=== PATIENT | female | born 1985 | race Caucasian/White ===

== ENCOUNTER 2016-10-06 22:54 | Emergency (ER) | payer OTHER ==
[~2016-10-06] VITALS: Ht 175.3 cm; Wt 70.0 kg
[~2016-10-06 22:54] MED LIST: LORTA5 PO; TIZA4 PO
[2016-10-06] MEDS ORDERED: CYMB30CA PO (23:01)
[2016-10-06 23:02] VITALS: BP 135/92; PULSE 104; RESP 19; TEMP 98.6; O2SAT 98
--- NOTE | 2016-10-07 00:45 | PD ---
HPI Chief Complaint: Alcohol/Drug Intoxication Time Seen by Provider: 00:41 Travel History International Travel<30 days: No Contact w/Intl Traveler<30days: No Traveled to known affect area: No History of Present Illness HPI Patient comes in under [place] act by police found to be altered secondary to drug use. Patient denies any medical complaints or concerns. Denies any pain anywhere. Denies chest pain, shortness of breath, abdominal pain, fevers, or headache. Patient states she just having weird dreams after injecting meth and taking 3 Xanax. PFSH Past Medical History Cardiovascular Problems: Yes (HX ENDOCARDITIS) Diabetes: No Diminished Hearing: No Genitourinary: No Musculoskeletal: No Neurologic: No Respiratory: No Immunizations Current: Yes ?: Unknown LMP: 1 MONTH AGO : 0 Past Surgical History Abdominal Surgery: Yes (APENDECTOMY) Appendectomy: Yes Valve Replacement: No Social History Alcohol Use: No Tobacco Use: Yes (1 PPD) Substance Use: Yes (PT STATES SHE "SHOOTS PILLS") Allergies-Medications (Allergen,Severity, Reaction): Coded Allergies: No Known Allergies (Verified , 10/06/16) Reported Meds & Prescriptions Reported Meds & Active Scripts Active Reported Cymbalta DR (Duloxetine HCl) 30 Mg Capdr 30 Mg PO DAILY Review of Systems Except as stated in HPI: all other systems reviewed are Neg Physical Exam Narrative GENERAL: Well-developed, well nourished, in no acute distress, and non-ill appearing. Patient appears under the influence of drugs. SKIN: Warm and dry. Multiple track soria noted bilateral upper extremities. HEAD: Atraumatic. Normocephalic. EYES: Pupils equal and round. EOMI. No scleral icterus. No injection or drainage. ENT: No nasal bleeding or discharge. Mucous membranes pink and moist. NECK: Trachea midline. Supple. No nuclear rigidity. CARDIOVASCULAR: Regular rate and rhythm. No murmur appreciated. RESPIRATORY: No accessory muscle use. No respiratory distress. Clear to auscultation. Breath sounds equal bilaterally. MUSCULOSKELETAL: No obvious deformities. No clubbing. No cyanosis. No edema. Full range of motion. NEUROLOGICAL: Awake and alert. No obvious cranial nerve deficits. Motor grossly within normal limits. Normal speech. Data Data Last Documented VS Orders Lorazepam Inj (Ativan Inj) (10/07/16 01:30) Diphenhydramine Inj (Benadryl Inj) (10/07/16 02:00) MDM Medical Decision Making Medical Screen Exam Complete: Yes Emergency Medical Condition: Yes Differential Diagnosis Alcohol Intoxication, polysubstance abuse, acute psychosis, other Narrative Course Patient was seen and examined. Patient will be monitored in the emergency department until no longer acting under the influence of drugs and able to ambulate on their own or until a sober responsible adult comes to pick them up. RN is aware of this. 0125 patient is reassessed, unable to sit still. Sitting in the chair trying to eat. Patient states that she is not able to keep her thoughts together currently. Diagnosis Primary Impression: Polysubstance abuse Referrals: [facility] Additional Instructions: Follow-up with your primary care physician or [facility] for detox. Stop doing drugs. Return to the emergency department for any emergent concerns. Disposition: 01 DISCHARGE HOME Condition: Stable Ayaan Kohler Oct 07, 2016 00:45 [facility] Additional Instructions: Follow-up with your primary care physician or [facility] for detox. Stop doing drugs. Return to the emergency department for any emergent concerns. Disposition: 01 DISCHARGE HOME Condition: Ayaan Alonso Oct 07, 2016 00:45 Ayaan Kohler Oct 07, 2016 00:45
[2016-10-07] MEDS ORDERED: LORazepam 2 MG/ML VIAL IM ONE (01:30)
[2016-10-07] MEDS ORDERED: diphenhydrAMINE HCL 50 MG/ML VIAL IM ONE (02:00)
[2016-10-07 09:30] VITALS: BP 105/53; PULSE 80; RESP 14; O2SAT 98
== END 2016-10-07 13:17 | disposition home or self-care (01) ==
LOC: NEPA 22:54
DX: F19.10 Other psychoactive substance abuse, uncomplicated (principal)
CPT/HCPCS: 96372; 99284; J1200; J2060

== ENCOUNTER 2017-12-18 20:37 | Emergency (ER) | payer OTHER ==
[~2017-12-18 20:37] MED LIST changes: +CYMB30CA PO; -LORTA5 PO; -TIZA4 PO
[2017-12-18 21:50] VITALS: BP 127/70; PULSE 103; RESP 16; TEMP 98.6; O2SAT 98
[2017-12-18] MEDS ORDERED: SODIUM CHLOR 0.9% 1000 ML INJ 1,000 ML IV SCH (23:24)
--- NOTE | 2017-12-18 23:26 | PD ---
HPI Chief Complaint: Fever Time Seen by Provider: 23:19 Travel History International Travel<30 days: No Contact w/Intl Traveler<30days: No Traveled to known affect area: No History of Present Illness HPI 32-year-old female with history of IV heroin abuse, most recently was this morning, remote history of tricuspid endocarditis, presents for evaluation of dysuria and fevers. She reports over the past 4 days she has been having dysuria, cloudy urine, concerned that she has urinary tract infection. For the past 2 days she has been having fevers as high as 101 at home. She has also had cough and hoarse voice for several days. Denies chest pain or shortness of breath, nausea or vomiting, abdominal pain, vaginal bleeding or discharge, neck or back pain, flank pain. No aggravating or relieving factors. She has no other complaints at this time. PFSH Past Medical History Cardiovascular Problems: Yes (HX ENDOCARDITIS) Diabetes: No Diminished Hearing: No Genitourinary: No Musculoskeletal: No Neurologic: No Respiratory: No Immunizations Current: Yes : 0 Past Surgical History Abdominal Surgery: Yes (APENDECTOMY) Appendectomy: Yes Valve Replacement: No Social History Alcohol Use: No Tobacco Use: Yes (1 PPD) Substance Use: Yes (PT STATES SHE "SHOOTS PILLS") Allergies-Medications (Allergen,Severity, Reaction): Coded Allergies: No Known Allergies (Verified Adverse Reaction, Unknown, 12/18/17) Reported Meds & Prescriptions Reported Meds & Active Scripts Active Reported Cymbalta DR (Duloxetine HCl) 30 Mg Capdr 30 Mg PO DAILY Review of Systems Except as stated in HPI: all other systems reviewed are Neg Physical Exam Narrative GENERAL: Well-developed well-nourished female no acute distress SKIN: Warm and dry. Track soria noted on the feet, arms, wrists. HEAD: Atraumatic. Normocephalic. EYES: Pupils equal and round. No scleral icterus. No injection or drainage. ENT: No nasal bleeding or discharge. Mucous membranes pink and moist. NECK: Trachea midline. No JVD. Neck supple full range of motion. CARDIOVASCULAR: Regular rate and rhythm. No murmur appreciated. RESPIRATORY: No accessory muscle use. Clear to auscultation. Breath sounds equal bilaterally. No crackles no wheezing no rhonchi GASTROINTESTINAL: Abdomen soft, non-tender, nondistended. Hepatic and splenic margins not palpable. MUSCULOSKELETAL: No obvious deformities. No clubbing. No cyanosis. No edema. No tenderness to palpation along the neck or back. NEUROLOGICAL: Awake and alert. No obvious cranial nerve deficits. Motor grossly within normal limits. Normal speech. PSYCHIATRIC: Appropriate mood and affect; insight and judgment normal. Data Data Last Documented VS Vital Signs Date Time Temp Pulse Resp B/P (MAP) Pulse Ox O2 Delivery O2 Flow Rate FiO2 12/18/17 21:50 98.6 103 16 127/70 (89) 98 Orders Orders Sepsis Workup Initiated (12/18/17 ) Complete Blood Count With Diff (12/18/17 23:24) Comprehensive Metabolic Panel (12/18/17 23:24) Lactic Acid Sepsis Protocol (12/18/17 23:24) Urinalysis - C+S If Indicated (12/18/17 23:24) Influenzae A/B Antigen (12/18/17 23:24) Blood Culture (12/18/17 23:24) Chest, Single Ap (12/18/17 23:24) Blood Glucose (12/18/17 23:24) Ecg Monitoring (12/18/17 23:24) Iv Access Insert/Monitor (12/18/17 23:24) Oximetry (12/18/17 23:24) Oxygen Administration (12/18/17 23:24) Ed Urine Pregnancytest Poc (12/18/17 23:24) Sodium Chlor 0.9% 1000 Ml Inj (Ns 1000 M (12/18/17 23:24) Ed Discharge Order (12/19/17 02:05) Labs Laboratory Tests Test 12/19/17 00:30 12/19/17 00:40 White Blood Count 5.5 TH/MM3 Red Blood Count 4.13 MIL/MM3 Hemoglobin 12.3 GM/DL Hematocrit 35.3 % Mean Corpuscular Volume 85.6 FL Mean Corpuscular Hemoglobin 29.8 PG Mean Corpuscular Hemoglobin Concent 34.8 % Red Cell Distribution Width 14.2 % Platelet Count 257 TH/MM3 Mean Platelet Volume 8.0 FL Neutrophils (%) (Auto) 63.7 % Lymphocytes (%) (Auto) 23.7 % Monocytes (%) (Auto) 9.4 % Eosinophils (%) (Auto) 2.6 % Basophils (%) (Auto) 0.6 % Neutrophils # (Auto) 3.5 TH/MM3 Lymphocytes # (Auto) 1.3 TH/MM3 Monocytes # (Auto) 0.5 TH/MM3 Eosinophils # (Auto) 0.1 TH/MM3 Basophils # (Auto) 0.0 TH/MM3 CBC Comment DIFF FINAL Differential Comment Blood Urea Nitrogen 15 MG/DL Creatinine 0.96 MG/DL Random Glucose 79 MG/DL Total Protein 8.0 GM/DL Albumin 3.7 GM/DL Calcium Level 8.6 MG/DL Alkaline Phosphatase 65 U/L Aspartate Amino Transf (AST/SGOT) 57 U/L Alanine Aminotransferase (ALT/SGPT) 110 U/L Total Bilirubin 0.2 MG/DL Sodium Level 137 MEQ/L Potassium Level 3.9 MEQ/L Chloride Level 99 MEQ/L Carbon Dioxide Level 30.7 MEQ/L Anion Gap 7 MEQ/L Estimat Glomerular Filtration Rate 68 ML/MIN Lactic Acid Level 1.7 mmol/L Urine Color YELLOW Urine Turbidity CLEAR Urine pH 6.5 Urine Specific [place] 1.020 Urine Protein NEG mg/dL Urine Glucose (UA) NEG mg/dL Urine Ketones NEG mg/dL Urine Occult Blood NEG Urine Nitrite NEG Urine Bilirubin NEG Urine Urobilinogen LESS THAN 2.0 MG/DL Urine Leukocyte Esterase NEG Urine RBC 1 /hpf Urine WBC 4 /hpf Urine Squamous Epithelial Cells 12 /hpf Urine Mucus FEW /lpf Microscopic Urinalysis Comment CATH-CULT NOT IND MDM Medical Decision Making Medical Screen Exam Complete: Yes Emergency Medical Condition: Yes Medical Record Reviewed: Yes Differential Diagnosis Urinary tract infection, pyelonephritis, pneumonia, bronchitis, influenza, bacteremia, endocarditis, sepsis Narrative Course 32-year-old female with reported fever at home, history of IV drug use, dysuria and cloudy urination over the past few days as well as a cough. She appears well overall. No murmur. Plan is for lab work, blood cultures, urinalysis, chest x-ray. She was given IV fluids. Lab work has been reviewed and found to be reassuring. No leukocytosis. She has mildly elevated liver enzymes. Urinalysis is unremarkable. Chest x-ray is normal. At this point in time there is no indication for admission however because of her history of IV drug use blood cultures have been sent and will be followed up on. I discussed results of the testing with the patient and she understands to return for any acutely new or worsening symptoms. She is stable for discharge. Diagnosis Primary Impression: Upper respiratory infection Additional Impression: History of intravenous drug abuse Additional Instructions: As discussed, consider attending a detoxification programs such as at [facility]. Follow-up with primary care physician. Return for any acutely new or worsening symptoms. Med/Other Pt SpecificInfo: No Change to Meds Disposition: 01 DISCHARGE HOME Condition: Stable Zack Hamilton Dec 18, 2017 23:26
--- NOTE | 2017-12-19 00:02 | RADRPT ---
EXAM DATE/TIME: 12/18/2017 23:30 [facility] COMPARISON: CHEST SINGLE AP, October 31, 2014, 5:52. INDICATIONS : Cough. MEDICAL HISTORY : None. SURGICAL HISTORY : None. ENCOUNTER: Initial ACUITY: 2 days PAIN SCORE: 0/10 LOCATION: Bilateral chest FINDINGS: A single view of the chest demonstrates the lungs to be symmetrically aerated without evidence of mas s, infiltrate or effusion. The cardiomediastinal contours are unremarkable. Osseous structures are intact. CONCLUSION: No acute cardiopulmonary process. Jose Ya MD on December 19, 2017 at 0:01 Board Certified Radiologist. This report was verified electronically.
[2017-12-19 00:57] LABS: AUTOMATED NEUTROPHIL # 3.5 TH/MM3 (1.8-7.7); BASOPHIL % 0.6 % (0.0-2.0); EOSINOPHIL # 0.1 TH/MM3 (0-0.4); EOSINOPHIL % 2.6 % (0.0-4.0); HEMATOCRIT 35.3 % (35.0-46.0); HEMOGLOBIN 12.3 GM/DL (11.6-15.3); LYMPH % 23.7 % (9.0-44.0); LYMPHOCYTE # 1.3 TH/MM3 (1.0-4.8); MEAN CELL VOLUME 85.6 FL (80.0-100.0); MEAN CORPUSCULAR HEMOGLOBIN 29.8 PG (27.0-34.0); MEAN CORPUSCULAR HGB CONC 34.8 % (32.0-36.0); MONO % 9.4 % (0.0-8.0); MONOCYTE # 0.5 TH/MM3 (0-0.9); NEUT % 63.7 % (16.0-70.0); PLATELET COUNT 257 TH/MM3 (150-450); RED BLOOD COUNT 4.13 MIL/MM3 (4.00-5.30); RED CELL DISTRIBUTION WIDTH 14.2 % (11.6-17.2); WHITE BLOOD COUNT 5.5 TH/MM3 (4.0-11.0)
[2017-12-19 01:10] LABS: ALBUMIN 3.7 GM/DL (3.4-5.0); ALT (GPT) 110 U/L (10-53); AST (GOT) 57 U/L (15-37); BICARBONATE 30.7 MEQ/L (21.0-32.0); BLOOD UREA NITROGEN 15 MG/DL (7-18); CALCIUM 8.6 MG/DL (8.5-10.1); CHLORIDE 99 MEQ/L (98-107); CREATININE 0.96 MG/DL (0.50-1.00); GLOMERULAR FILTRATION RATE 68 ML/MIN (>89); GLUCOSE,RANDOM 79 MG/DL (74-106); SODIUM (NA) 137 MEQ/L (136-145)
[2017-12-19 01:13] LABS: ALKALINE PHOSPHATASE 65 U/L (45-117); TOTAL BILIRUBIN ADULT 0.2 MG/DL (0.2-1.0)
[2017-12-19 01:13] LABS: BILIRUBIN, URINE NEG (NEG); BLOOD, URINE NEG (NEG); GLUCOSE,URINE NEG (NEG); KETONE, URINE NEG (NEG); MUCUS URINE FEW /lpf (OCC); NITRITE,URINE NEG (NEG); PH, URINE 6.5 (5.0-8.5); SQUAMOUS EPITHELIAL CELL URINE 12 /hpf (0-5); URINE COLOR YELLOW (YELLW/STRAW); URINE LEUKOCYTE ESTERASE NEG (NEG)
[2017-12-19 02:05] VITALS: BP 125/68; PULSE 94; RESP 18; O2SAT 100
== END 2017-12-19 02:18 | disposition home or self-care (01) ==
LOC: NEPD 20:37
DX: J06.9 Acute upper respiratory infection, unspecified (principal); R74.8 Abnormal levels of other serum enzymes; F11.10 Opioid abuse, uncomplicated; F17.200 Nicotine dependence, unspecified, uncomplicated; Z79.899 Other long term (current) drug therapy
CPT/HCPCS: 71045; 80053; 81001; 83605; 84703; 85025; 87040; 87804; 99284; J7030